=== PATIENT | male | born 1970 | race Caucasian/White ===

== ENCOUNTER 2019-09-22 07:32 | Emergency (ER) | payer BC, OTHER ==
[~2019-09-22] VITALS: Ht 190.5 cm; Wt 104.3 kg
[2019-09-22 07:54] VITALS: BP_SYST 143
[2019-09-22] MEDS: IBUPROFEN 600 MG TABLET PO ONE (09:28)
[2019-09-22 11:24] VITALS: BP_SYST 138
== END 2019-09-22 11:24 | disposition home or self-care (01) ==
LOC: SED 07:32
DX: T65.891A Toxic effect of other specified substances, accidental (unintentional), initial encounter (principal); R11.0 Nausea; Y92.488 Other paved roadways as the place of occurrence of the external cause
CPT/HCPCS: 71046-TC; 99283